=== PATIENT | female | born 1945 | race Caucasian/White ===

== ENCOUNTER → 2018-01-18 | Outpatient (CLI) | payer MEDICARE ==
--- NOTE | 2018-01-22 09:46 | MM ---
Reason for exam: screening (asymptomatic). Last mammogram was performed 2 years ago. History: Patient is postmenopausal and history of other cancer. Family history of breast cancer in sister at age 66. Benign right mammotome panel of the right breast, February 03, 2012. Benign excisional biopsy of the right breast, January 14, 1998. Benign core biopsy of the right breast, May 14, 1997. Benign stereotactic core biopsy of the right breast, May 14, 1997. Physical Findings: A clinical breast exam by your physician is recommended on an annual basis and results should be correlated with mammographic findings. MG Screening Mammo w CAD Bilateral CC and MLO view(s) were taken. Prior study comparison: January 13, 2016, mammogram, performed at [facility]. January 05, 2015, mammogram, performed at [facility]. There are scattered fibroglandular densities. Benign appearing bilateral calcifications. No suspicious abnormality. No significant changes when compared with prior studies. ASSESSMENT: Benign, BI-RAD 2 RECOMMENDATION: Routine screening mammogram of both breasts in 1 year.
== END | disposition home or self-care (01) ==
LOC: RADMAMWWP 14:33
PROVIDERS: ATTEND Surgery
DX: Z12.31 Encounter for screening mammogram for malignant neoplasm of breast (principal)
CPT/HCPCS: 77067

== ENCOUNTER → 2018-02-01 | Outpatient (CLI) | payer MEDICARE ==
[2018-02-01 12:05] VITALS: BP 140/64; PULSE 61; TEMP 97.7; BMI 28.1
--- NOTE | 2018-02-01 12:52 | P.GSHP ---
History of Present Illness H&P Date: 02/01/18 The patient is a 72-year-old white female who underwent a bilateral mammogram [id number]. The mammogram was a benign BIRADS 2. The patient does not feel anything of concern in her breast. She denies any pain in her breast. She has no abnormal lumps masses or nipple discharge or skin changes. The patient is followed by Dr. Thompson for non-Hodgkin's lymphoma treated 8 years ago. Family history: 1. Sister diagnosed with breast cancer she had a normal mammogram but a supraclavicular nodule, at 64: the disease is metastatic to liver and bone 2. Father: Prostate cancer 3. Older sister: Uterine cancer/ from this menarche: 10 : 4, 3 live births, breast fed: all, first born at 23 menopause: 53 hormones: none BCP: 18 months Past surgical history: 1. Laminectomy 2. Right knee replacement 3. Left shoulder replacement 4. Left thyroid lobectomy 5. Left parotid gland resection 6. coronary stents 3 7. Left groin biopsy/non-Hodgkin's lymphoma 8. Cataract surgery social history: Smoking: Negative Alcohol: Negative Drugs: Negative Past medical history: 1. Hypertension 2. Coronary artery disease 3. Arthritis 4. Non-Hodgkin's lymphoma 5. Thyroid cancer - Constitutional Constitutional: Reports sweats, Denies chills, Denies fever - EENT Eyes: denies blurred vision, denies pain Ears: bilateral: decreased hearing, deny: tinnitus Ears, nose, mouth and throat: Denies headache, Denies sore throat - Breasts Breasts: bilateral: as per HPI - Cardiovascular Comment: coronary stints times three Cardiovascular: Reports high blood pressure - Respiratory Respiratory: Denies cough, Denies 7 - Gastrointestinal Gastrointestinal: Denies abdominal pain, Denies diarrhea, Denies nausea, Denies vomiting - Genitourinary (Female) Genitourinary: Denies dysuria, Denies hematuria - Menstruation Menstruation: Reports postmenopausal - Musculoskeletal Comment: arthritis - Integumentary Comment: History of non-Hodgkin's lymphoma - Neurological Comment: 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 Neurological: Denies numbness, Denies weakness - Psychiatric Psychiatric: Denies anxiety, Denies depression - Endocrine Comment: thyroid cancer - Hematologic/Lymphatic Comment: Baby aspirin - Allergic/Immunologic Allergic/Immunologic: Reports seasonal allergies Past Medical History Past Medical History: Coronary Artery Disease (CAD), Cancer, Eye Disorder, GERD/ Reflux, Hyperlipidemia, Hypertension, Osteoarthritis (OA), Skin Disorder, Thyroid Disorder Additional Past Medical History / Comment(s): HX LYMPHOMA-2009 W/ CHEMO, THYROID CA-2010, BILAT CATARACTS, ROSACEA History of Any Multi-Drug Resistant Organisms: None Reported Past Surgical History: Back Surgery, Heart Catheterization, Heart Catheterization With Stent, Joint Replacement Additional Past Surgical History / Comment(s): LT THYROIDECTOMY, LT PAROTID GLAND REMOVAL, LT SHOULDER REPLACEMENT AND RT TOTAL KNEE, CATARACT Past Anesthesia/Blood Transfusion Reactions: Motion Sickness, Postoperative Nausea & Vomiting (PONV) Date of Last Stent Placement:: 2012 Past Psychological History: No Psychological Hx Reported Smoking Status: Never smoker Past Alcohol Use History: Rare Past Drug Use History: None Reported - Past Family History Father Family Medical History: Cancer Additional Family Medical History / Comment(s): prostate, 1995 Sister(s) Family Medical History: Cancer Additional Family Medical History / Comment(s): oldest sister, from uterine cancer 2007. youngest sister, stage 4 breast cancer 2015 also well as bone and liver Medications and Allergies Home Medications Medication Instructions Recorded Confirmed Type Aspirin EC [Ecotrin] 162 mg PO DAILY 04/04/14 02/01/18 History Atenolol [Tenormin] 12.5 mg PO QAM 04/04/14 02/01/18 History Fosinopril [Monopril] 10 mg PO QAM 04/04/14 02/01/18 History Gabapentin [Neurontin] 300 mg PO HS PRN 04/04/14 02/01/18 History Loratadine [Claritin] 10 mg PO DAILY PRN 04/04/14 02/01/18 History Omeprazole [PriLOSEC] 20 mg PO QAM 04/04/14 02/01/18 History Acetaminophen [Tylenol Arthritis] 650 mg PO DAILY PRN 02/01/18 02/01/18 History Levothyroxine Sodium [Levoxyl] 112 mcg PO QAM 02/01/18 02/01/18 History Magnesium 500 mg PO QAM 02/01/18 02/01/18 History [place]-3 Fatty Acids/Fish Oil [Fish 1 each PO BID 02/01/18 02/01/18 History Oil 1,000 mg Softgel] Rosuvastatin [Crestor] 20 mg PO HS 02/01/18 02/01/18 History Allergies Allergy/AdvReac Type Severity Reaction Status Date / Time adhesive AdvReac Rash/Hives Verified 05/26/14 09:27 Surgical - Exam Vital Signs Temp Pulse BP Pulse Ox 97.7 F 61 140/64 99 02/01/18 12:01 02/01/18 12:01 02/01/18 12:01 02/01/18 12:01 - General well developed, well nourished, no distress - Eyes normal ocular movement, no icteric - ENT no hearing loss, no congestion - Neck no masses, trachea midline - Respiratory normal respiratory effort, clear to auscultation - Cardiovascular Rhythm: regular Heart Sounds: normal: S1, S2 - Abdomen Abdomen: soft, non tender, no guarding, no rigid, no rebound - Neurologic no disoriented, no combative - Musculoskeletal normal gait, normal posture - Psychiatric oriented to time, oriented to person, oriented to place, speech is normal, memory intact Breast examination: Right breast: Multiple positional exam no dominant masses or nodules of concern Right axilla: No adenopathy of concern Left breast: No masses of concern were multiple positional exam Left axilla: No adenopathy of concern Particular attention to the supraclavicular area did not reveal any lesions of concern patient has no groin adenopathy of concern Results Mammogram reviewed from 01-18-18 Assessment and Plan Assessment: Impression/plan: 1. Fibrocystic breast changes, BIRADS 2 mammogram done [id number] 2. Coronary artery disease 3. Prior history of non-Hodgkin's lymphoma 4. Prior history of thyroid cancer 5. Coronary artery disease status post stent placement 3 6. Hypertension Plan: 1. Bilateral screening mammogram in 1 year with physician exam at that time 2. Medical management of medical problems 2 CC: Dr. Chapa, Dr. Thompson
== END | disposition home or self-care (01) ==
LOC: WWCWWP 11:39
PROVIDERS: ATTEND Surgery
DX: Z53.9 Procedure and treatment not carried out, unspecified reason (principal)

== ENCOUNTER → 2019-01-21 | Outpatient (CLI) | payer MEDICARE ==
--- NOTE | 2019-01-22 10:11 | MM ---
Reason for exam: screening (asymptomatic). Last mammogram was performed 1 year ago. History: Patient is postmenopausal and history of other cancer. Family history of breast cancer in sister at age 66. Benign right mammotome panel of the right breast, February 03, 2012. Benign excisional biopsy of the right breast, January 14, 1998. Benign core biopsy of the right breast, May 14, 1997. Benign stereotactic core biopsy of the right breast, May 14, 1997. Physical Findings: A clinical breast exam by your physician is recommended on an annual basis and results should be correlated with mammographic findings. MG 3D Screening Mammo W/Cad Bilateral CC and MLO view(s) were taken. Prior study comparison: January 18, 2018, bilateral MG screening mammo w CAD. January 13, 2016, mammogram, performed at [facility]. There are scattered fibroglandular densities. There are benign appearing dystrophic calcifications bilaterally. Previous mammotome biopsy in the right breast. There is no discrete abnormality. ASSESSMENT: Benign, BI-RAD 2 RECOMMENDATION: Routine screening mammogram of both breasts in 1 year.
== END | disposition home or self-care (01) ==
LOC: RADMAMWWP 09:50
PROVIDERS: ATTEND Surgery
DX: Z12.31 Encounter for screening mammogram for malignant neoplasm of breast (principal)
CPT/HCPCS: 77063; 77067

== ENCOUNTER → 2019-01-31 | Outpatient (CLI) | payer MEDICARE ==
--- NOTE | 2019-01-31 11:49 | P.PN ---
Subjective Progress Note Date: 01/31/19 Principal diagnosis: non-hodgkins lymphoma Rody is a 73-year-old white female who underwent a bilateral mammogram on . This was benign BIRADS 2 repeat mammogram and 1 year was recommended. The patient does not feel any masses or nodules in her breasts. She is followed by Dr. Thompson for non-Hodgkin's lymphoma treated 8 years ago. The patient has lost 50 pounds intentionally over the past 2 years. Family history: 1. Sister: Breast cancer at 64 and developed metastatic disease to liver and bone, she earlier this year 2. Father: Prostate cancer 3. Another sister: Uterine cancer, from this Hormonal history: Menarche: 10 1 miscarriage, breast-fed: All, first born at 23 Menopause: 53 Hormones: Negative Both control pills: 18 months Past surgical history: 1. Laminectomy 2. Right knee replacement 2. Left shoulder replacement 4. Left thyroid lobectomy. 5. Left parotid gland resection 6. Coronary stents 3 7. Left groin biopsy/non-Hodgkin's lymphoma 8. Cataract surgery. Medical history: 1. Hypertension 2. Coronary artery disease 3. Arthritis 4. Non-Hodgkin's lymphoma in the past 5. Thyroid cancer in the past Social history: Smoking: Negative Alcohol: Negative Drugs: Negative Objective - Vital Signs Vital signs: Vital Signs Temp 98.0 F 01/31/19 10:58 Pulse 57 L 01/31/19 10:58 Resp 18 01/31/19 10:58 BP 146/64 01/31/19 10:58 Pulse Ox 99 01/31/19 10:58 Intake & Output 01/30/19 01/31/19 01/31/19 18:59 06:59 18:59 Weight 74.843 kg - Exam BMI 27.5 - Constitutional General appearance: Present: average body habitus - EENT Eyes: Present: EOMI ENT: Present: hearing grossly normal - Neck Neck: Present: normal ROM - Respiratory Respiratory: bilateral: CTA - Cardiovascular Rhythm: regular Heart sounds: normal: S1, S2 - Gastrointestinal General gastrointestinal: Present: soft - Integumentary Integumentary: Present: normal turgor - Musculoskeletal Musculoskeletal: Present: gait normal - Psychiatric Psychiatric: Present: A&O x's 3, appropriate affect, intact judgment & insight - Additional findings Additional findings: Breast examination: right breasts: Scar well-healed from prior biopsy, multiple positional exam note dominant masses or nodules of concern, dense breast fibrocystic changes Right axilla: No adenopathy of concern left breast: Multiple positional exam no dominant masses or nodules of concern, dense breast tissue fibrocystic changes Left axilla: No adenopathy of concern Assessment and Plan Assessment: Impression: 1. Hypertension 2. Coronary artery disease 3. Arthritis 4. Non-Hodgkin's lymphoma in the past 5. Thyroid cancer in the past 6. Fibrocystic breast changes 7. Family history of breast cancer 8. Patient personal history of non-Hodgkin's lymphoma, and thyroid cancer no evidence of disease at this time Plan: 1. Medical management of medical conditions 2. Patient to do breast self exams if she finds anything of concern to call immediately 3. Repeat bilateral mammogram and physician exam in 1 year CC:DR. Chapa
== END | disposition home or self-care (01) ==
DX: Z53.9 Procedure and treatment not carried out, unspecified reason (principal)

== ENCOUNTER → 2020-01-17 | Outpatient (CLI) | payer MEDICARE ==
--- NOTE | 2020-01-17 15:39 | BD ---
EXAMINATION TYPE: Axial Bone Density DATE OF EXAM: 01/17/2020 COMPARISON: NONE CLINICAL HISTORY: Height: 63.5 IN Weight: 167 LBS FRAX RISK QUESTIONS: Family History (Parent hip fracture): YES MOTHER RISK FACTORS HISTORY OF: Surgery to Spine: YES L4-L5 When: 2001 Family History of Osteoporosis: YES Active: MODERATE Postmenopausal woman: AGE 53 Lost more than 2 inches in height since high school: YES 3" MEDICATIONS: Thyroid Medications: YES Which medication: Levothyroxine How Long: SINCE 2010 Additional Medications: LEVOTHYROXINE, VIT D, ATENOLOL,BLOOD PRESSURE , PRILOSEC, ASPIRIN, CRESTOR Additional History: NON HODGEKINS LYMPHOMA WITH RADIATION AND CHEMO; THYROID CANCER EXAM MEASUREMENTS: Bone mineral densitometry was performed using the [employer] System. L-SPINE SURGERY 2001 Bone mineral density about the R hip (g/cm2): 1.011 Bone mineral density about the L hip (g/cm2): 1.024 T Score values are as follows: -----R Neck: -0.2 -----L Neck: -0.1 -----R Total: -0.2 -----L Total: 0.8 Bone mineral density BASELINE Bone mineral density about the L Wrist (g/cm2): 0.609 T Score values are as follows: -----Dist. R+U: -0.2 -----Prox. R+U: -0.1 -----Radius total: -0.2 Bone mineral density BASELINE IMPRESSION: No evidence for osteoporosis or osteopenia. NOTE: T-SCORE=SD OF THE YOUNG ADULT MEAN.
== END | disposition home or self-care (01) ==
LOC: RADBDWWP 13:52
PROVIDERS: ATTEND Family Medicine
DX: M84.9 Disorder of continuity of bone, unspecified (principal)
CPT/HCPCS: 77080

== ENCOUNTER → 2020-01-24 | Outpatient (CLI) | payer MEDICARE ==
--- NOTE | 2020-01-27 10:14 | MM ---
Reason for exam: screening (asymptomatic). Last mammogram was performed 1 year ago. History: Patient is postmenopausal and history of other cancer. Family history of breast cancer in sister at age 66. Benign right mammotome panel of the right breast, February 03, 2012. Benign excisional biopsy of the right breast, January 14, 1998. Benign core biopsy of the right breast, May 14, 1997. Benign stereotactic core biopsy of the right breast, May 14, 1997. Physical Findings: A clinical breast exam by your physician is recommended on an annual basis and results should be correlated with mammographic findings. MG 3D Screening Mammo W/Cad Bilateral CC and MLO view(s) were taken. Prior study comparison: January 21, 2019, bilateral MG 3d screening mammo w/cad. January 18, 2018, bilateral MG screening mammo w CAD. There are scattered fibroglandular densities. No significant changes when compared with prior studies. ASSESSMENT: Benign, BI-RAD 2 RECOMMENDATION: Routine screening mammogram of both breasts in 1 year.
== END | disposition home or self-care (01) ==
LOC: RADMAMWWP 10:35
PROVIDERS: ATTEND Family Medicine
DX: Z12.31 Encounter for screening mammogram for malignant neoplasm of breast (principal)
CPT/HCPCS: 77063; 77067

== ENCOUNTER → 2021-01-25 | Outpatient (CLI) | payer MEDICARE ==
--- NOTE | 2021-01-27 08:11 | MM ---
Reason for exam: screening (asymptomatic). Last mammogram was performed 1 year ago. History: Patient is postmenopausal and history of other cancer. Family history of breast cancer in sister at age 66 and breast cancer in paternal aunt at age 7. Benign right mammotome panel of the right breast, February 03, 2012. Benign excisional biopsy of the right breast, January 14, 1998. Benign core biopsy of the right breast, May 14, 1997. Benign stereotactic core biopsy of the right breast, May 14, 1997. Physical Findings: A clinical breast exam by your physician is recommended on an annual basis and results should be correlated with mammographic findings. MG 3D Screening Mammo W/Cad Bilateral CC and MLO view(s) were taken. Prior study comparison: January 24, 2020, bilateral MG 3d screening mammo w/cad. January 21, 2019, bilateral MG 3d screening mammo w/cad. There are scattered fibroglandular densities. Benign appearing coarse bilateral calcifications. No significant changes when compared with prior studies. ASSESSMENT: Benign, BI-RAD 2 RECOMMENDATION: Routine screening mammogram of both breasts in 1 year.
== END | disposition home or self-care (01) ==
LOC: RADMAMWWP 10:56
PROVIDERS: ATTEND Surgery
DX: Z12.31 Encounter for screening mammogram for malignant neoplasm of breast (principal); Z80.3 Family history of malignant neoplasm of breast
CPT/HCPCS: 77063; 77067

== ENCOUNTER → 2021-01-28 | Outpatient (CLI) | payer MEDICARE ==
[2021-01-28 11:47] VITALS: BP 172/81; PULSE 63; RESP 18; TEMP 98.2
--- NOTE | 2021-01-28 11:59 | P.PN ---
Subjective Progress Note Date: 01/28/21 Principal diagnosis: Fibrocystic breast changes fibrocystic breast changes Rody is a 75-year-old white female who underwent a bilateral mammogram on . This was benign BIRADS 2 repeat mammogram and 1 year was recommended. The patient does not feel any masses or nodules in her breasts. She is followed by Dr. Thompson for non-Hodgkin's lymphoma treated 8 years ago. She will see him next week. No recurrence of nonhodgkins lymphoma. She is also followed for a thyroid nodule stable from 11 years ago. She had a left lobe resection. The patient has lost 50 pounds intentionally over the past 3 years. Family history: 1. Sister: Breast cancer at 64 and developed metastatic disease to liver and bone, she 1 1/2 years ago 2. Father: Prostate cancer 3. Another sister: Uterine cancer, from this Hormonal history: Menarche: 10 1 miscarriage, breast-fed: All, first born at 23 Menopause: 53 Hormones: Negative Both control pills: 18 months Past surgical history: 1. Laminectomy 2. Right knee replacement 2. Left shoulder replacement 4. Left thyroid lobectomy. 5. Left parotid gland resection 6. Coronary stents 3 7. Left groin biopsy/non-Hodgkin's lymphoma 8. Cataract surgery. Medical history: 1. Hypertension 2. Coronary artery disease 3. Arthritis 4. Non-Hodgkin's lymphoma in the past 5. Thyroid cancer in the past Review of systems HEENT: Wears glasses otherwise negative Lungs: Negative Cardiac: Coronary artery disease, hypertension GI: Negative : Postmenopausal no complications Musculoskeletal: Arthritis Neurologic: Negative Hematologic: Non-Hodgkin's lymphoma in the past Endocrine: Thyroid cancer in the past Psychiatric: Negative ALLERGIES: Adhesive tape, seasonal ALLERGIES Social history: Smoking: Negative Alcohol: Negative Drugs: Negative Objective - Vital Signs Vital signs: Vital Signs Temp 98.2 F 01/28/21 11:44 Pulse 63 01/28/21 11:44 Resp 18 01/28/21 11:44 BP 172/81 01/28/21 11:44 Pulse Ox 100 01/28/21 11:44 Intake & Output 01/27/21 01/28/21 01/28/21 18:59 06:59 18:59 Weight 77.111 kg - Exam BMI 29.2 - Constitutional General appearance: Present: average body habitus - EENT Eyes: Present: EOMI ENT: Present: hearing grossly normal - Neck Neck: Present: normal ROM - Respiratory Respiratory: bilateral: CTA - Cardiovascular Heart sounds: normal: S1, S2 - Gastrointestinal General gastrointestinal: Present: soft - Integumentary Integumentary: Present: normal turgor - Musculoskeletal Musculoskeletal: Present: gait normal - Psychiatric Psychiatric: Present: A&O x's 3, appropriate affect, intact judgment & insight - Additional findings Additional findings: Bresat Exam: BRA: 38D inspection: grade 3 ptosis bilateral palpation: right breast: Multiple positional exam fibrocystic changes, no dominant masses or nodules of concern Right axilla: No adenopathy of concern Left breast: Multi-positional exam fibrocystic changes no dominant masses or nodules of concern Left axilla: No adenopathy of concern Assessment and Plan Assessment: Impression: 1. Hypertension 2. Coronary artery disease 3. Arthritis 4. Non-Hodgkin's lymphoma in the past 5. Thyroid cancer in the past 6. Bilateral fibrocystic breast changes 7. Bilateral mammogram [id number] benign BIRADS 2 Plan: 1. Repeat bilateral mammogram in 1 year with physician exam at that time CC: Dr. Michelle Rangel
== END | disposition home or self-care (01) ==
LOC: WWCWWP 11:37
PROVIDERS: ATTEND Surgery
DX: Z53.9 Procedure and treatment not carried out, unspecified reason (principal)

== ENCOUNTER → 2021-02-10 | Outpatient (CLI) | payer MEDICARE ==
[2021-02-10 10:31] LABS: African American GFR (CKD) >90 (>60 ml/min/1.73 sqM); Blood Urea Nitrogen 18 mg/dL (7-17); Non-African American GFR(CKD) >90 (>60 ml/min/1.73 sqM)
--- NOTE | 2021-02-10 11:48 | CT ---
EXAMINATION TYPE: CT abdomen pelvis w con DATE OF EXAM: 02/10/2021 COMPARISON: HISTORY: Abdominal pain CT DLP: 894.8 mGycm Automated exposure control for dose reduction was used. CONTRAST: CT scan of the abdomen pelvis is performed with IV Contrast, patient injected with 100 mL of Isovue 3 00. FINDINGS- LUNG BASES-coronary artery calcification suggested. Lung bases clear.. LIVER/GB- No gross abnormality is appreciated. PANCREAS- No gross abnormality is seen. SPLEEN- No gross abnormality is seen. ADRENALS- No gross abnormality is seen. KIDNEYS/BLADDER- no hydronephrosis nephrolithiasis or renal mass. BOWEL-bowel gas pattern nonspecific. Small hiatal hernia noted.. LYMPH NODES- No greater than 1cm abdominal or pelvic lymph nodes areappreciated. OSSEOUS STRUCTURES-hypertrophic and degenerative changes spine. Fusion of L4 and L5 noted with multil evel severe degenerative disc disease.. OTHER- bladder distends normally. May be slightly low-lying in position correlate for cystocele. No free fluid or free air. Aorta of normal caliber with atherosclerotic changes. IMPRESSION- 1. Small portion of the bladder is low-lying in position suggestive of a small cystocele. Correlate c linically. 2. Small hiatal hernia
== END | disposition home or self-care (01) ==
LOC: RADCTMAIN 08:27
PROVIDERS: ATTEND Internal Medicine Hematology & Oncology
DX: Z03.89 Encounter for observation for other suspected diseases and conditions ruled out (principal); C85.98 Non-Hodgkin lymphoma, unspecified, lymph nodes of multiple sites; K44.9 Diaphragmatic hernia without obstruction or gangrene; R10.9 Unspecified abdominal pain
CPT/HCPCS: 82565; 84520; 74177; 36415; Q9967 ×2

== ENCOUNTER → 2022-01-27 | Outpatient (CLI) | payer MEDICARE ==
--- NOTE | 2022-01-28 08:06 | MM ---
Reason for Exam: Screening (asymptomatic). Last screening mammogram was performed 12 month(s) ago. Patient History: Menarche at age 10. First Full-Term at age 23. Postmenopausal. Other cancer. 02/03/2012, Benign Core Biopsy on the right side. 01/14/1998, Benign Excisional Biopsy on the right side. 05/14/1997, Benign Core Biopsy on the right side. 05/14/1997, Benign Stereotactic Core Biopsy on the right side. Paternal aunt had breast cancer under age 50. Sister had breast cancer, age 66. Risk Values: [place] 5 year model risk: 5.5%. NCI Lifetime model risk: 10.2%. Prior Study Comparison: 01/21/2019 Bilateral Screening Mammogram, [facility]. 01/24/2020 Bilateral Screening Mammogram, [facility]. 01/25/2021 Bilateral Screening Mammogram, [facility]. Tissue Density: The breast tissue is heterogeneously dense. This may lower the sensitivity of mammography. Findings: Analyzed By CAD. There is no suspicious group of microcalcifications or new suspicious mass in either breast. Stable benign bilateral calcifications. Overall Assessment: Benign, BI-RAD 2 Management: Screening Mammogram of both breasts in 1 year. A clinical breast exam by your physician is recommended on an annual basis and results should be correlated with mammographic findings. Electronically signed and approved by: Cy Harmon M.D. Radiologis
== END | disposition home or self-care (01) ==
LOC: RADMAMWWP 10:49
PROVIDERS: ATTEND Surgery
DX: Z12.31 Encounter for screening mammogram for malignant neoplasm of breast (principal)
CPT/HCPCS: 77063; 77067

== ENCOUNTER → 2022-02-03 | Outpatient (CLI) | payer MEDICARE ==
[2022-02-03 11:41] VITALS: BP 172/77; PULSE 62; RESP 16; TEMP 98.2
--- NOTE | 2022-02-03 12:19 | P.PN ---
Subjective Progress Note Date: 02/03/22 Principal diagnosis: fibrocystic breast changes Fibrocystic breast changes fibrocystic breast changes Rody is a 76-year-old white female who underwent a bilateral mammogram on . This was benign BIRADS 2 repeat mammogram in 1 year was recommended. The patient does not feel any masses or nodules in her breasts. Not complaining of any nipple discharge or skin changes in her breasts. She is followed by Dr. Thompson for non-Hodgkin's lymphoma treated 11 years ago. No recurrence of nonhodgkins lymphoma. She is also followed for a thyroid nodule stable from 12 years ago. She had a left lobe resection. The patient has lost 50 pounds intentionally over the past 4 years. She was diagnosed with a cystocele, and is using estradiol cream. She has not noted any changes in her breast. Family history: 1. Sister: Breast cancer at 64 and developed metastatic disease to liver and bone, she 1 1/2 years ago 2. Father: Prostate cancer 3. Another sister: Uterine cancer, from this Hormonal history: Menarche: 10 1 miscarriage, breast-fed: All, first born at 23 Menopause: 53 Hormones: Negative Both control pills: 18 months Past surgical history: 1. Laminectomy 2. Right knee replacement 2. Left shoulder replacement 4. Left thyroid lobectomy. 5. Left parotid gland resection 6. Coronary stents 3 7. Left groin biopsy/non-Hodgkin's lymphoma 8. Cataract surgery. Medical history: 1. Hypertension 2. Coronary artery disease 3. Arthritis 4. Non-Hodgkin's lymphoma in the past 5. Thyroid cancer in the past Review of systems HEENT: Wears glasses otherwise negative Lungs: Negative Cardiac: Coronary artery disease, hypertension GI: Negative : Postmenopausal no complications Musculoskeletal: Arthritis Neurologic: Negative Hematologic: Non-Hodgkin's lymphoma in the past Endocrine: Thyroid cancer in the past Psychiatric: Negative ALLERGIES: Adhesive tape, seasonal ALLERGIES Social history: Smoking: Negative Alcohol: Negative Drugs: Negative Objective - Vital Signs Vital signs: Vital Signs Temp 98.2 F 02/03/22 11:38 Pulse 62 02/03/22 11:38 Resp 16 02/03/22 11:38 BP 172/77 02/03/22 11:38 Pulse Ox 99 02/03/22 11:38 FiO2 Intake & Output 02/02/22 02/03/2202/03/22 18:59 06:59 18:59 Weight 77.564 kg - Exam BMI: 28.5 - Constitutional General appearance: Present: cooperative - EENT Eyes: Present: EOMI ENT: Present: hearing grossly normal - Neck Neck: Present: normal ROM - Respiratory Respiratory: bilateral: CTA - Cardiovascular Rhythm: regular Heart sounds: normal: S1, S2 - Integumentary Integumentary: Present: normal turgor - Musculoskeletal Musculoskeletal: Present: gait normal - Psychiatric Psychiatric: Present: A&O x's 3, appropriate affect, intact judgment & insight - Additional findings Additional findings: Breast Exam: BRA: 38D Inspection: The lateral grade 2 ptosis Palpation: Right breast: Multi-positional exam fibrocystic changes no dominant masses or notches of concern Right axilla: No adenopathy of concern Left breast: Multiple positional exam fibrocystic changes no dominant masses or nodules of concern Left axilla: No adenopathy of concern Assessment and Plan Assessment: Impression: Fibrocystic breast changes Recent bilateral mammograms [id number] no discrete lesions of concern Patient recently started estradiol will follow closely this was for a cystocele and it does seem to be helping History of non-Hodgkin's lymphoma no evidence of any recurrence Thyroid nodule following in [place] Plan: Repeat bilateral mammogram in 1 year Patient to follow up sooner any questions or concerns We have tests the risk of estradiol potentially family history positive at this time patient understand she is going to have close surveillance CC: DR. Michelle Carlos
== END | disposition home or self-care (01) ==
LOC: WWCWWP 11:27
PROVIDERS: ATTEND Surgery
DX: Z53.9 Procedure and treatment not carried out, unspecified reason (principal)

== ENCOUNTER → 2023-02-03 | Outpatient (CLI) | payer MEDICARE ==
[2023-02-03 10:57] VITALS: BP 173/68; PULSE 69; RESP 18; TEMP 98.6
--- NOTE | 2023-02-03 11:23 | P.PN ---
Subjective Progress Note Date: 02/03/23 Principal diagnosis: fibrocystic breast changes fibrocystic breast changes Rody is a 77-year-old white female who underwent a bilateral mammogram on . This was benign BIRADS 2 repeat mammogram in 1 year was recommended. The patient does not feel any masses or nodules in her breasts. Not complaining of any nipple discharge or skin changes in her breasts. She is followed by Dr. Thompson for non-Hodgkin's lymphoma treated 11 years ago. No recurrence of nonhodgkins lymphoma. She is also followed for a thyroid nodule stable from 13 years ago. She had a left thyroid lobe resection 2010. She was diagnosed with a cystocele, and is using estradiol cream. She has not noted any changes in her breast. Rocío risk 5.4% at 5 years declined chemo-prevention, wishes to continue estradiol cream Family history: 1. Sister: Breast cancer at 64 and developed metastatic disease to liver and bone, she 1 1/2 years ago 2. Father: Prostate cancer 3. Another sister: Uterine cancer, from this Hormonal history: Menarche: 10 1 miscarriage, breast-fed: All, first born at 23 Menopause: 53 Hormones: Negative Both control pills: 18 months Past surgical history: 1. Laminectomy 2. Right knee replacement 2. Left shoulder replacement 4. Left thyroid lobectomy. 5. Left parotid gland resection 6. Coronary stents 3 7. Left groin biopsy/non-Hodgkin's lymphoma 8. Cataract surgery. Medical history: 1. Hypertension 2. Coronary artery disease 3. Arthritis 4. Non-Hodgkin's lymphoma in the past 5. Thyroid cancer in the past Review of systems HEENT: Wears glasses otherwise negative Lungs: Negative Cardiac: Coronary artery disease, hypertension GI: Negative : Postmenopausal no complications Musculoskeletal: Arthritis Neurologic: Negative Hematologic: Non-Hodgkin's lymphoma in the past Endocrine: Thyroid cancer in the past Psychiatric: Negative ALLERGIES: Adhesive tape, seasonal ALLERGIES Social history: Smoking: Negative Alcohol: Negative Drugs: Negative Objective - Vital Signs Vital signs: Vital Signs Temp 98.6 F 02/03/23 10:52 Pulse 69 02/03/23 10:52 Resp 18 02/03/23 10:52 BP 173/68 02/03/23 10:52 Pulse Ox 98 02/03/23 10:52 FiO2 - Constitutional General appearance: Present: cooperative - EENT Eyes: Present: EOMI ENT: Present: hearing grossly normal - Neck Neck: Present: normal ROM - Respiratory Respiratory: bilateral: CTA - Cardiovascular Rhythm: regular Heart sounds: normal: S1, S2 - Gastrointestinal General gastrointestinal: Present: soft - Integumentary Integumentary: Present: normal turgor - Musculoskeletal Musculoskeletal: Present: gait normal - Psychiatric Psychiatric: Present: A&O x's 3, appropriate affect, intact judgment & insight - Additional findings Additional findings: Breast Exam: BRA: 38D Inspection: Bilateral grade 2 ptosis, well healed scar right breast Palpation: Right breast: Multi-positional exam fibrocystic changes no dominant masses or nodules of concern Right axilla: No adenopathy of concern Left breast: Multiple positional exam fibrocystic changes no dominant masses or nodules of concern Left axilla: No adenopathy of concern Assessment and Plan Assessment: Impression: Fibrocystic breast changes Recent bilateral mammograms 01-30-23 no discrete lesions of concern Patient recently started estradiol will follow closely this was for a cystocele and it does seem to be helping History of non-Hodgkin's lymphoma no evidence of any recurrence Thyroid nodule following in [place] Plan: Repeat bilateral mammogram in 1 year Patient to follow up sooner any questions or concerns We have discussed the risk of estradiol potentially family history positive at this time patient understand she is going to have close surveillance CC: DR. Michelle Carlos
== END ==
LOC: WWCWWP 10:36
PROVIDERS: ATTEND Surgery
DX: Z12.31 Encounter for screening mammogram for malignant neoplasm of breast (principal); N60.19 Diffuse cystic mastopathy of unspecified breast; E04.1 Nontoxic single thyroid nodule; N81.10 Cystocele, unspecified; I10 Essential (primary) hypertension; I25.10 Atherosclerotic heart disease of native coronary artery without angina pectoris; M19.90 Unspecified osteoarthritis, unspecified site; Z80.3 Family history of malignant neoplasm of breast; Z91.048 Other nonmedicinal substance allergy status; Z79.899 Other long term (current) drug therapy; Z79.890 Hormone replacement therapy

== ENCOUNTER → 2024-02-01 | Outpatient (CLI) | payer MEDICARE ==
--- NOTE | 2024-02-02 10:12 | MM ---
Reason for Exam: Screening (asymptomatic). Last screening mammogram was performed 12 month(s) ago. Patient History: Menarche at age 10. First Full-Term at age 23. Postmenopausal. Patient has history of breast feeding. 02/03/2012, Benign Core Biopsy on the right side. 01/14/1998, Benign Excisional Biopsy on the right side. 05/14/1997, Benign Core Biopsy on the right side. 05/14/1997, Benign Stereotactic Core Biopsy on the right side. Paternal aunt had breast cancer, age 70. Sister had breast cancer, age 66. Risk Values: Rocío 5 year model risk: 5.3%. NCI Lifetime model risk: 8.7%. Prior Study Comparison: 01/25/2021 Bilateral Screening Mammogram, [facility]. 01/27/2022 Bilateral MG 3D screening mammo w/cad, [facility]. 01/30/2023 Bilateral MG 3D screening mammo w/cad, [facility]. Tissue Density: The breasts are heterogeneously dense, which may obscure small masses. Findings: Analyzed By CAD. There is no suspicious group of microcalcifications or new suspicious mass in either breast. Overall Assessment: Benign, BI-RAD 2 Management: Screening Mammogram of both breasts in 1 year. . Patient should continue monthly self-breast exams. A clinical breast exam by your physician is recommended on an annual basis. This exam should not preclude additional follow-up of suspicious palpable abnormalities. Note on Rocío scores and lifetime risk: 1. A Rocío score greater than 3% is considered moderate risk. If this is the case, consider specialist referral to assess eligibility for a risk reducing agent. 2. If overall lifetime risk for the development of breast cancer is 20% or higher, the patient may qualify for future screening with alternating mammogram and breast MRI. Electronically signed and approved by: Cy Harmon M.D. Radiologis
== END | disposition home or self-care (01) ==
LOC: RADMAMWWP 08:55
PROVIDERS: ATTEND Surgery
DX: Z12.31 Encounter for screening mammogram for malignant neoplasm of breast (principal); Z78.0 Asymptomatic menopausal state; Z80.3 Family history of malignant neoplasm of breast; R92.333 Mammographic heterogeneous density, bilateral breasts
CPT/HCPCS: 77063; 77067

== ENCOUNTER → 2024-02-08 | Outpatient (CLI) | payer MEDICARE ==
[2024-02-08 11:08] VITALS: BP 124/68; PULSE 77; RESP 17; TEMP 98.3
--- NOTE | 2024-02-08 11:12 | P.PN ---
Subjective Progress Note Date: 02/08/24 Principal diagnosis: fibrocystic breast disease, high risk breast cancer Rocío Risk: 5.3% 02-08-24 Principal diagnosis: fibrocystic breast changes Rody is a 78-year-old white female who underwent a bilateral mammogram on . This was benign BIRADS 2 repeat mammogram in 1 year was recommended. This was personally reviewed. The patient does not feel any masses or nodules in her breasts. Not complaining of any nipple discharge or skin changes in her breasts. She is followed by Dr. Thompson for non-Hodgkin's lymphoma treated 12 years ago. No recurrence of nonhodgkins lymphoma. She is also followed for a thyroid nodule stable from 14 years ago. She had a left thyroid lobe resection 2010. She was diagnosed with a cystocele, and is using estradiol cream. She has not noted any changes in her breast. Rocío risk 5.3% at 5 years declined chemo-prevention, wishes to continue estradiol cream She is going to have her knee replaced in March 2024 Family history: 1. Sister: Breast cancer at 64 and developed metastatic disease to liver and bone, she 1 1/2 years ago 2. Father: Prostate cancer 3. Another sister: Uterine cancer, from this Hormonal history: Menarche: 10 1 miscarriage, breast-fed: All, first born at 23 Menopause: 53 Hormones: Negative Both control pills: 18 months Past surgical history: 1. Laminectomy 2. Right knee replacement 2. Left shoulder replacement 4. Left thyroid lobectomy. 5. Left parotid gland resection 6. Coronary stents 3 7. Left groin biopsy/non-Hodgkin's lymphoma 8. Cataract surgery. Medical history: 1. Hypertension 2. Coronary artery disease 3. Arthritis 4. Non-Hodgkin's lymphoma in the past 5. Thyroid cancer in the past Review of systems HEENT: Wears glasses otherwise negative Lungs: Negative Cardiac: Coronary artery disease, hypertension GI: Negative : Postmenopausal no complications Musculoskeletal: Arthritis Neurologic: Negative Hematologic: Non-Hodgkin's lymphoma in the past Endocrine: Thyroid cancer in the past Psychiatric: Negative ALLERGIES: Adhesive tape, seasonal ALLERGIES Social history: Smoking: Negative Alcohol: Negative Drugs: Negative Objective - Vital Signs Vital signs: Intake & Output 02/07/24 02/08/24 02/08/24 18:59 06:59 18:59 Weight 78.471 kg - Constitutional General appearance: Present: cooperative - EENT Eyes: Present: EOMI ENT: Present: hearing grossly normal - Neck Neck: Present: normal ROM - Respiratory Respiratory: bilateral: CTA - Cardiovascular Rhythm: regular Heart sounds: normal: S1, S2 - Integumentary Integumentary: Present: normal turgor - Musculoskeletal Musculoskeletal: Present: gait normal - Psychiatric Psychiatric: Present: A&O x's 3, appropriate affect, intact judgment & insight - Additional findings Additional findings: Breast Exam: BRA: 38D Inspection: Bilateral grade 2 ptosis, well healed scar right breast Palpation: Right breast: Multi-positional exam fibrocystic changes no dominant masses or nodules of concern Right axilla: No adenopathy of concern Left breast: Multiple positional exam fibrocystic changes no dominant masses or nodules of concern Left axilla: No adenopathy of concern Assessment and Plan Assessment: Impression: Fibrocystic breast changes Recent bilateral mammograms 01-31-24 BIRAD 2, personally interpreted no discrete lesions of concern Patient recently started estradiol will follow closely this was for a cystocele and it does seem to be helping History of non-Hodgkin's lymphoma no evidence of any recurrence Thyroid nodule following in [place] high risk breast cancer Rocío Risk 5.3% Plan: Repeat bilateral mammogram in 1 year Patient to follow up sooner any questions or concerns We have discussed the risk of estridiol and she is going to continue this declined chemoprophylaxis CC: DR. Michelle Carlos
== END ==
LOC: WWCWWP 10:39
PROVIDERS: ATTEND Surgery
DX: R92.8 Other abnormal and inconclusive findings on diagnostic imaging of breast (principal); N60.11 Diffuse cystic mastopathy of right breast; N60.12 Diffuse cystic mastopathy of left breast; E04.1 Nontoxic single thyroid nodule; N81.10 Cystocele, unspecified; Z80.3 Family history of malignant neoplasm of breast; Z85.72 Personal history of non-Hodgkin lymphomas; Z91.048 Other nonmedicinal substance allergy status; Z79.890 Hormone replacement therapy

== ENCOUNTER → 2025-02-03 | Outpatient (CLI) | payer MEDICARE ==
--- NOTE | 2025-02-03 17:48 | MM ---
Reason for Exam: Screening (asymptomatic). Last screening mammogram was performed 12 month(s) ago. Patient History: Menarche at age 10. First Full-Term at age 23. Postmenopausal. Patient has history of breast feeding. 02/03/2012, Benign Core Biopsy on the right side. 01/14/1998, Benign Excisional Biopsy on the right side. 05/14/1997, Benign Core Biopsy on the right side. 05/14/1997, Benign Stereotactic Core Biopsy on the right side. Paternal aunt had breast cancer, age 70. Sister had breast cancer, age 66. Risk Values: Rocío 5 year model risk: 5.1%. NCI Lifetime model risk: 7.9%. Prior Study Comparison: 01/27/2022 Bilateral MG 3D screening mammo w/cad, [facility]. 01/30/2023 Bilateral MG 3D screening mammo w/cad, [facility]. 02/01/2024 Bilateral MG 3D screening mammo w/cad, [facility]. Tissue Density: There are scattered areas of fibroglandular density. Findings: Analyzed By CAD. A few benign oil cyst and fat necrosis calcifications in both sides. There is no suspicious group of microcalcifications or new suspicious mass in either breast. Overall Assessment: Benign, BI-RAD 2 Management: Screening Mammogram of both breasts in 1 year. See note below in regards to the patient's increased 5 year Rocío score. Patient should continue monthly self-breast exams. A clinical breast exam by your physician is recommended on an annual basis. This exam should not preclude additional follow-up of suspicious palpable abnormalities. Note on Rocío scores and lifetime risk: 1. A Rocío score greater than 3% is considered moderate risk. If this is the case, consider specialist referral to assess eligibility for a risk reducing agent. 2. If overall lifetime risk for the development of breast cancer is 20% or higher, the patient may qualify for future screening with alternating mammogram and breast MRI. [facility], , 02/03/2025 5:45 PM. Electronically signed and approved by: Vangie Gray M.D. Radiologist
== END | disposition home or self-care (01) ==
LOC: RADMAMWWP 09:27
PROVIDERS: ATTEND Surgery
DX: Z12.31 Encounter for screening mammogram for malignant neoplasm of breast (principal); R92.323 Mammographic fibroglandular density, bilateral breasts; Z80.3 Family history of malignant neoplasm of breast; Z78.0 Asymptomatic menopausal state
CPT/HCPCS: 77063; 77067

== ENCOUNTER → 2025-02-06 | Outpatient (CLI) | payer MEDICARE ==
[2025-02-06 10:45] VITALS: BP 167/73; PULSE 60; RESP 17; TEMP 97.8
--- NOTE | 2025-02-06 10:58 | P.PN ---
Subjective Progress Note Date: 02/06/25 Principal diagnosis: fibrocystic breast disease 02-06-25 Principal diagnosis: fibrocystic breast disease, high risk breast cancer Rocío Risk: 5.1% Rody is an 79-year-old white female who underwent a bilateral mammogram on . This was benign BIRADS 2 repeat mammogram in 1 year was recommended. This was personally reviewed. The patient does not feel any masses or nodules in her breasts. Not complaining of any nipple discharge or skin changes in her breasts. She is followed by Dr. Thompson for non-Hodgkin's lymphoma treated 12 years ago. No recurrence of nonhodgkins lymphoma. She is also followed for a thyroid nodule stable from 14 years ago. She had a left thyroid lobe resection 2010. She was diagnosed with a cystocele, and is using estradiol cream. She has not noted any changes in her breast. Rocío risk 5.1% at 5 years declined chemo-prevention, wishes to continue estradiol cream She is going to have her knee replaced in March 2024, this was cancelled secondary to cardiac stints placed on plavix and ASA Family history: 1. Sister: Breast cancer at 64 and developed metastatic disease to liver and bone, she 1 1/2 years ago 2. Father: Prostate cancer 3. Another sister: Uterine cancer, from this Hormonal history: Menarche: 10 1 miscarriage, breast-fed: All, first born at 23 Menopause: 53 Hormones: Negative Both control pills: 18 months Past surgical history: 1. Laminectomy 2. Right knee replacement 2. Left shoulder replacement 4. Left thyroid lobectomy. 5. Left parotid gland resection 6. Coronary stents 3 7. Left groin biopsy/non-Hodgkin's lymphoma 8. Cataract surgery. 9. Two cardiac stints placed Medical history: 1. Hypertension 2. Coronary artery disease 3. Arthritis 4. Non-Hodgkin's lymphoma in the past 5. Thyroid cancer in the past Review of systems HEENT: Wears glasses otherwise negative Lungs: Negative Cardiac: Coronary artery disease, hypertension GI: Negative : Postmenopausal no complications Musculoskeletal: Arthritis Neurologic: Negative Hematologic: Non-Hodgkin's lymphoma in the past Endocrine: Thyroid cancer in the past Psychiatric: Negative ALLERGIES: Adhesive tape, seasonal ALLERGIES Social history: Smoking: Negative Alcohol: Negative Drugs: Negative Objective - Vital Signs Vital signs: Vital Signs Temp 97.8 F 02/06/25 10:42 Pulse 60 02/06/25 10:42 Resp 17 02/06/25 10:42 BP 167/73 02/06/25 10:42 Pulse Ox 94 L 02/06/25 10:42 FiO2 Intake & Output 02/05/25 02/06/25 02/06/25 18:59 06:59 18:59 Weight 80.739 kg - Constitutional General appearance: Present: cooperative - EENT Eyes: Present: EOMI ENT: Present: hearing grossly normal - Neck Neck: Present: normal ROM - Respiratory Respiratory: bilateral: CTA - Cardiovascular Rhythm: regular Heart sounds: normal: S1, S2 - Integumentary Integumentary: Present: normal turgor - Musculoskeletal Musculoskeletal: Present: gait normal - Psychiatric Psychiatric: Present: A&O x's 3, appropriate affect, intact judgment & insight - Additional findings Additional findings: Breast Exam: BRA: 38D Inspection: Bilateral grade 2 ptosis, well healed scar right breast Palpation: Right breast: Multi-positional exam fibrocystic changes no dominant masses or nodules of concern Right axilla: No adenopathy of concern Left breast: Multiple positional exam fibrocystic changes no dominant masses or nodules of concern Left axilla: No adenopathy of concern Assessment and Plan Assessment: Impression: Fibrocystic breast changes Recent bilateral mammograms 02-03-25 BIRAD 2, personally interpreted no discrete lesions of concern Patient recently started estradiol will follow closely this was for a cystocele and it does seem to be helping History of non-Hodgkin's lymphoma no evidence of any recurrence Thyroid nodule following in [place] high risk breast cancer Rocío Risk 5.3% Plan: Repeat bilateral mammogram in 1 year, January 2026 with appointment at that time Patient to follow up sooner any questions or concerns We have discussed the risk of estridiol and she is going to continue this declined chemoprophylaxis CC: DR. Michelle Carlos
== END | disposition home or self-care (01) ==
LOC: WWCWWP 10:09
PROVIDERS: ATTEND Surgery
DX: N60.19 Diffuse cystic mastopathy of unspecified breast (principal); N81.10 Cystocele, unspecified; E04.1 Nontoxic single thyroid nodule; Z85.72 Personal history of non-Hodgkin lymphomas; Z91.048 Other nonmedicinal substance allergy status